=== PATIENT | female | born 1970 | race Caucasian/White ===

== ENCOUNTER 2017-09-04 08:49 | Outpatient (CLI) | payer OTHER ==
--- NOTE | 2017-09-04 13:47 | OP Clinic Progress Note ---
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 She called me about a week ago because she had a recurrent rash on her right lower extremity. I put her on prednisone 20 mg twice a day and it has improved. Otherwise, she is not having any asthma- like symptoms. No other rashes. No chest pain or shortness of breath. She has had an issue of "thrush" in her mouth. She has had 2 trials of Diflucan and Nystatin. She is now on clotrimazole and gentamicin [place]. Note, she has been on low-dose steroids for quite a while. PRESENT MEDICATIONS: Reported by the patient: 1. Aspirin 81 mg daily. 2. Albuterol 2 puffs as needed. 3. Baclofen 10 mg 4 times a day. 4. Gabapentin 300 mg 3 times a day. 5. Potassium 40 mEq daily. 6. Singulair 10 mg daily. 7. Trazodone 150 mg daily. 8. Temazepam. 9. Levocetirizine 5 mg daily. 10. Melatonin 5 mg daily. 11. Prednisone 20 mg twice a day. 12. Lasix 40 mg daily. 13. Hydrochlorothiazide. 14. Diltiazem. 15. Coreg 12.5 mg daily. 16. Clotrimazole. REVIEW OF SYSTEMS: She continues to put on weight. She has had no fevers or chills. She has a skin rash as above. No chest pain, shortness of breath, cough or wheezing. No change in her urine. No numbness or tingling in her extremities. PHYSICAL EXAMINATION: GENERAL: She looks well and is in no distress. VITAL SIGNS: Weight: 288 pounds. Height: 5 feet 7 inches. T: 98.5, R: 20 , heart rate 75, BP: 130/80. HEENT: Sclerae are anicteric. Conjunctivae are pink. No stomatitis or glossitis. The tongue, however, is coated with a whitish material. No erythema. No ulcers. No desquamation. Neck: No cervical nodes. LUNGS: Clear with no crackles or wheezing. HEART: Regular rate and rhythm. ABDOMEN: Soft and nontender. VASCULAR: Unremarkable. No edema or cyanosis. SKIN: Reveals some hyperpigmented lesions on the lower extremities, otherwise , no palpable purpura. LABORATORY: Her last labs were unremarkable with negative ANCAs. IMPRESSION: Recurrence of [place] vasculitis, mainly in lower extremities, improving. PLAN: 1. I am repeating her antineutrophil cytoplasmic antibodies, proteinase-3, and myeloperoxidase, sedimentation rate, CBC, and CMP. 2. We will check a urinalysis. 3. I am decreasing her prednisone from 40 mg to 30 mg daily. 4. Depending on the above results, we will continue tapering the prednisone or repeat the treatment of Rituxan. 5. As for her tongue lesion, since it has been resistant, I suggest that she see her assembler camper, who may need to perform a biopsy. Thank you very much. CLARA
== END 2017-09-04 12:30 ==
LOC: RHEU 08:49
PROVIDERS: ATTEND Internal Medicine
DX: M30.1 Polyarteritis with lung involvement [Churg-Strauss] (principal)
CPT/HCPCS: 99213; 99214